=== PATIENT | male | born 1965 | race Caucasian/White ===

== ENCOUNTER 2017-09-25 10:34 | Emergency (ER) | payer MEDICAID, OTHER ==
[2017-09-25 11:22] VITALS: BP 137/99
[2017-09-25] MEDS ORDERED: Ketorolac INJ* 60 MG/2 ML VIAL IM ONE (11:43)
--- NOTE | 2017-09-25 11:51 | UC ---
[facility] HPI - HPI Summary HPI Summary: had right lower tooth ache last evening, awoke this morning with increase pain and swelling-managing secretions well, but feels like he cannot eat. no fevers or chills, - History of Current Complaint Chief Complaint: UCDentalProblem Stated Complaint: POSS EAR INFECTION/TOOTHACHE Time Seen by Provider: 09/25/17 11:33 Hx Obtained From: Patient Onset/Duration: Gradual Onset, Worse Since - this morning Pain Intensity: 10 Pain Scale Used: 0-10 Numeric Aggravating Factor(s): Nothing Alleviating Factor(s): Nothing Related History: Previous Dental Care on Same Tooth, Swelling - Allergies/Home Medications Allergies/Adverse Reactions: Allergies Allergy/AdvReac Type Severity Reaction Status Date / Time bee pollen Allergy anaph Verified 09/25/17 11:22 bee venom protein (honey bee) Allergy anaph Verified 09/25/17 11:22 Home Medications: Home Medications NK [No Home Medications Reported] 09/25/17 [History Confirmed 09/25/17] PMH/Surg Hx/FS Hx/Imm Hx Previously Healthy: Yes - Surgical History Surgical History: Yes Surgery Procedure, Year, and Place: SEPTOPLASTY . 2014- [facility] - Family History Known Family History: Positive: None - Social History Occupation: Employed Full-time Lives: With Family Alcohol Use: Weekly Alcohol Amount: 12 PACK PER WEEK Substance Use Type: Marijuana Substance Use Comment - Amount & Last Used: LAST SMOKED 1 WEEK AGO Smoking Status (MU): Heavy Every Day Tobacco Smoker Amount Used/How Often: 1/2 PPD X 32 YEARS When Did the Patient Quit Smoking/Using Tobacco: 1/2 PACK PER DAY Review of Systems Constitutional: Negative Skin: Negative Eyes: Negative ENT: Dental Pain Respiratory: Negative Cardiovascular: Negative Gastrointestinal: Negative Genitourinary: Negative Motor: Negative Neurovascular: Negative Musculoskeletal: Negative Neurological: Negative Psychological: Negative Is Patient Immunocompromised?: No All Other Systems Reviewed And Are Negative: Yes Physical Exam Triage Information Reviewed: Yes Appearance: Ill-Appearing, Pain Distress, Thin Vital Signs: Initial Vital Signs Temp 98.5 F 09/25/17 11:15 Pulse 79 09/25/17 11:15 Resp 16 09/25/17 11:15 BP 137/99 09/25/17 11:15 Pulse Ox 100 09/25/17 11:15 Vital Signs Reviewed: Yes Eye Exam: Normal Eyes: Positive: Conjunctiva Clear ENT Exam: Normal ENT: Positive: Nasal congestion, TMs normal Dental Exam: Other Dental: Positive: Percussion Tenderness @ - multiple, Gross Decay/Caries @ - multiple, Dental Fracture @, Abscess @ - right lower jaw Neck exam: Normal Neck: Positive: Supple, Nontender, No Lymphadenopathy Respiratory Exam: Normal Respiratory: Positive: Chest non-tender, Lungs clear, Normal breath sounds, No respiratory distress, No accessory muscle use Cardiovascular Exam: Normal Cardiovascular: Positive: RRR, No Murmur, Pulses Normal, Brisk Capillary Refill Musculoskeletal Exam: Normal Musculoskeletal: Positive: Strength Intact, ROM Intact, No Edema Neurological Exam: Normal Neurological: Positive: Alert, Muscle Tone Normal Psychological Exam: Normal Skin Exam: Normal Dental Complaint Course/Dx - Course Course Of Treatment: npo to ed for further evaluation of dental abscess and treatment - Differential Dx/Diagnosis Provider Diagnoses: right lower jaw abscess Discharge - Sign-Out/Discharge Documenting (check all that apply): Patient Departure - Discharge Plan Condition: Fair Disposition: HOME-RECOMMEND TO ED Patient Education Materials: Abscess (ED) Referrals: No Primary Care Phys,NOPCP [Primary Care Provider] - Additional Instructions: please go directly to the emergency department at [facility] for evaluation of dental infection and abscess - Billing Disposition and Condition Condition: FAIR Disposition: Home-Recommend to ED
== END 2017-09-25 12:05 | disposition home health service (06) ==
LOC: UCEAST 10:34
DX: M27.2 Inflammatory conditions of jaws (principal); K08.89 Other specified disorders of teeth and supporting structures; F17.210 Nicotine dependence, cigarettes, uncomplicated; Z91.030 Bee allergy status
CPT/HCPCS: 96372; 99212; G0463; J1885

== ENCOUNTER 2017-09-25 12:33 | Emergency (ER) | payer MEDICAID ==
[2017-09-25 15:02] VITALS: BP 0/0
== END 2017-09-25 14:45 | disposition left against medical advice (07) ==
LOC: ED 12:33
DX: K04.7 Periapical abscess without sinus (principal); Z53.21 Procedure and treatment not carried out due to patient leaving prior to being seen by health care provider

== ENCOUNTER 2019-01-19 23:10 | Emergency (ER) | payer SELFPAY ==
--- NOTE | 2019-01-20 00:28 | ED ---
Psychiatric Complaint - HPI Summary HPI Summary: Patient is a 53 y/o M presenting to [facility] under 941 status for reported SI. Patient states that he had a close friend five days ago and notes the anniversary of the of another friend was three days ago. The patient had been drinking alcohol tonight with his fiance, Marbella, the evening of . The fiance reports that the patient has been difficult to console. Patient had been drinking alcohol tonight and was acting in an angry manner towards his fiance. Fiance called police as she wanted someone to come and calm him down. She states that the patient had made no statements of SI and HI. Patient and police spoke privately. The patient states, "I had a moment" but currently denies any SI. Home medications and allergies are reviewed. - History Of Current Complaint Chief Complaint: EDMentalHealth Time Seen by Provider: 01/19/19 23:47 Hx Obtained From: Patient Onset/Duration: Still Present - intoxicated, Resolved - no SI Timing: Intermittent Episode Lasting Character: Depressed - reported SI, patient denies SI but notes recent of friend Aggravating Factor(s): Recent Stress Has Suicidal: Denies: Thoughts - DENIES - Allergies/Home Medications Allergies/Adverse Reactions: Allergies Allergy/AdvReac Type Severity Reaction Status Date / Time bee pollen Allergy anaph Verified 09/25/17 11:22 bee venom protein (honey bee) Allergy anaph Verified 09/25/17 11:22 PMH/Surg Hx/FS Hx/Imm Hx Sensory History: Denies: Hx Contacts or Glasses, Hx Legally Blind, Hx Deafness, Hx Hearing Aid Opthamlomology History: Denies: Hx Contacts or Glasses, Hx Legally Blind EENT History: Denies: Hx Deafness - Surgical History Surgery Procedure, Year, and Place: SEPTOPLASTY 1989'S. [place] [place] Anesthesia Reactions: No Infectious Disease History: No Infectious Disease History: Denies: Traveled Outside the [place] in Last 30 Days - Family History Known Family History: Negative: Seizure Disorder - Social History Alcohol Use: Weekly Alcohol Amount: 12 PACK PER WEEK Substance Use Type: Reports: Marijuana Substance Use Comment - Amount & Last Used: LAST SMOKED 1 WEEK AGO Smoking Status (MU): Heavy Every Day Tobacco Smoker Amount Used/How Often: 1/2 PPD X 32 YEARS Review of Systems Constitutional: Other - positive - alcohol intoxication Psychological: Other - reported SI, patient denies SI All Other Systems Reviewed And Are Negative: Yes Physical Exam - Summary Physical Exam Summary: Appearance: Well-appearing, Well-nourished, lying in bed comfortably Skin: Warm, dry, no obvious rash Eyes: sclera anicteric, no conjunctival pallor ENT: mucous membranes moist, pharynx appears normal Neck: Supple, nontender Respiratory: Clear to auscultation, no signs of respiratory distress Cardiovascular: Normal S1, S2. No murmurs. Normal distal pulses in tibial and radial bilaterally. Abdomen: Soft, nontender, normal active bowel sounds present Musculoskeletal: Normal, Strength/ROM Intact Neurological: A&Ox3, awake and alert, mentation is normal, speech is fluent and appropriate Psychiatric: Appears mildly intoxicated but can converse normally and answer questions appropriately. He has no SI. Triage Information Reviewed: Yes Vital Signs On Initial Exam: Initial Vitals Temp Pulse Resp BP Pulse Ox 98.0 F 98 18 143/107 98 01/19/19 23:13 01/19/19 23:13 01/19/19 23:13 01/19/19 23:13 01/19/19 23:13 Vital Signs Reviewed: Yes Procedures - Sedation Patient Received Moderate/Deep Sedation with Procedure: No Diagnostics - Vital Signs Vital Signs Temp Pulse Resp BP Pulse Ox 01/19/19 23:13 98.0 F 98 18 143/107 98 - Laboratory Lab Statement: Any lab studies that have been ordered have been reviewed, and results considered in the medical decision making process. Course/Dx - Course Course Of Treatment: Patient is a 53 y/o M presenting to [facility] under 941 status for reported SI. Patient states that he had a close friend five days ago and notes the anniversary of the of another friend was three days ago. The patient had been drinking alcohol tonight with his fiance, Marbella, the evening of 01/19/19. The fiance reports that the patient has been difficult to console. Patient had been drinking alcohol tonight and was acting in an angry manner towards his fiance. Fiance called police as she wanted someone to come and calm him down. She states that the patient had made no statements of SI and HI. Patient and police spoke privately. The patient states, "I had a moment" but currently denies any SI. Psychiatric Exam: Appears mildly intoxicated but can converse normally and answer questions appropriately. He has no SI. Patient was discharged to home with sisi, who will provide safe ride home for the patient. - Differential Dx/Clinical Impression Provider Diagnosis: Alcohol intoxication Discharge ED - Sign-Out/Discharge Documenting (check all that apply): Patient Departure - discharge - Discharge Plan Condition: Stable Disposition: HOME Patient Education Materials: Alcohol Intoxication (ED), Abuse of Alcohol (ED) Referrals: [facility] [Outside] No Primary Care Phys,NOPCP [Primary Care Provider] - - Billing Disposition and Condition Condition: STABLE Disposition: Home - Attestation Statements Document Initiated by Izabelibe: Yes Documenting Scribe: DONNA DOMINGUEZ Provider For Whom Mirian is Documenting (Include Credential): GIOVANNI BLANCAS MD Scribe Attestation: DONNA Solis, scribed for GIOVANNI BLANCAS MD on 01/20/19 at 1846. Scribe Documentation Reviewed: Yes Provider Attestation: The documentation as recorded by the DONNA flynn accurately reflects the service I personally performed and the decisions made by me, GIOVANNI BLANCAS MD Status of Scribe Document: Viewed
[2019-01-20 00:58] VITALS: BP 00/00
== END 2019-01-20 01:01 | disposition home or self-care (01) ==
LOC: ED 23:10
DX: F10.129 Alcohol abuse with intoxication, unspecified (principal); Z91.030 Bee allergy status; F17.200 Nicotine dependence, unspecified, uncomplicated
CPT/HCPCS: 99283